=== PATIENT | female | born 1955 | race Caucasian/White ===

== ENCOUNTER → 2016-12-25 | Outpatient (CLI) | payer OTHER | END | disposition home or self-care (01) | LOC: RAD 11:43 | PROVIDERS: ATTEND Nurse Practitioner Family | DX: Z01.818 Encounter for other preprocedural examination (principal); Z96.659 Presence of unspecified artificial knee joint | CPT/HCPCS: 71020 ==

== ENCOUNTER 2017-02-11 05:18 | Inpatient (IN) | payer OTHER ==
[2017-02-03 15:54] VITALS: BP 142/87
[~2017-02-11] VITALS: Ht 162.6 cm; Wt 86.0 kg
[~2017-02-11 05:18] MED LIST: ALPR0.5T6 PO; AMLO1CAP14 PO; ESTR2TAB PO; FLUO20TA25 PO; IBUP-1223 PO; LEVO75TA PO
[2017-02-11] MEDS ORDERED: LACTATED RINGERS 1,000 ML IV SCH (05:44)
[2017-02-11] MEDS ORDERED: ALLEGRA PO (05:48)
[2017-02-11] MEDS ORDERED: VANCOMYCIN PMX 1GM/200ML 200 ML IV STA (05:58)
[2017-02-11] MEDS ORDERED: LIDOCAINE 1%, 2ML SQ PRN (06:00)
[2017-02-11] MEDS ORDERED: cloniDINE/PF 100 MCG/ML, 10 ML ONE (06:11)
[2017-02-11] MEDS ORDERED: TRANEXAMIC ACID 100 MG/ML, 10ML ONE (06:11)
[2017-02-11] MEDS ORDERED: EPINEPHRINE 1 MG/ML, 1ML ONE (06:12)
[2017-02-11] MEDS ORDERED: LIDOCAINE/PF 1%, 30ML ONE (06:12)
[2017-02-11] MEDS ORDERED: KETAMINE 10 MG/ML, 20ML ONE (06:17)
[2017-02-11] MEDS ORDERED: MIDAZOLAM 1 MG/ML, 2ML ONE (06:17)
[2017-02-11] MEDS ORDERED: FENTANYL PF 250 MCG/5ML ONE (06:18)
[2017-02-11] MEDS ORDERED: DEXAMETHASONE 4 MG/ML, 1ML ONE (06:21)
[2017-02-11] MEDS ORDERED: PROPOFOL 10 MG/ML, 20ML ONE (06:21)
[2017-02-11] MEDS ORDERED: BUPIVACAINE/PF 0.25% ONE (06:21)
[2017-02-11] MEDS ORDERED: ONDANSETRON 2MG/ML, 2ML ONE (06:21)
[2017-02-11] MEDS ORDERED: BUPIVACAINE/PF 0.5% ONE (06:21)
[2017-02-11] MEDS ORDERED: CEFAZOLIN 1,000 MG ONE (06:21)
[2017-02-11] MEDS ORDERED: SCOPOLAMINE PATCH, 1.5MG PATCH.TD72 TD ONE ×2 (06:30→06:31)
[2017-02-11] MEDS ORDERED: PROPOFOL 50 ML ONE ×2 (06:54→07:44)
[2017-02-11] MEDS ORDERED: LIDOCAINE GEL 2%, 5ML ONE (06:57)
[2017-02-11] MEDS ORDERED: MAGNESIUM HYDROXIDE 8%, 30ML UDC PO PRN (07:00)
[2017-02-11] MEDS ORDERED: GABAPENTIN 300 MG CAPSULE PO ONE (07:00)
[2017-02-11] MEDS ORDERED: ONDANSETRON 4 MG TABLET PO PRN (07:00)
[2017-02-11] MEDS ORDERED: ZOLPIDEM 5MG TABLET PO PRN (07:00)
[2017-02-11] MEDS ORDERED: PROMETHAZINE 25 MG/ML, 1ML IM PRN (07:00)
[2017-02-11] MEDS ORDERED: morphine SULFATE 10 MG/ML, 1ML IV PRN (07:00)
[2017-02-11] MEDS ORDERED: BISACODYL 10 MG SUPP PR PRN (07:00)
[2017-02-11] MEDS ORDERED: PROMETHAZINE 12.5 MG SUPP PR PRN (07:00)
[2017-02-11] MEDS ORDERED: ACETAMINOPHEN 650 MG/20.3 ML UDC PO PRN (07:00)
[2017-02-11] MEDS ORDERED: OXYcodone IR 5MG TABLET PO SCH (07:00)
[2017-02-11] MEDS ORDERED: ONDANSETRON 2MG/ML, 2ML IV PRN (07:00)
[2017-02-11] MEDS ORDERED: ALUMINUM/MAG/SIMETHICONE 30 ML UDC PO PRN (07:00)
[2017-02-11] MEDS ORDERED: ACETAMINOPHEN 500 MG TABLET PO ONE (07:00)
[2017-02-11] MEDS ORDERED: DIPHENHYDRAMINE 50 MG CAPSULE PO PRN (07:00)
[2017-02-11] MEDS ORDERED: SENNA/DOCUSATE TABLET PO PRN (07:00)
[2017-02-11] MEDS ORDERED: HYDROmorphone 2 MG/ML, 1ML ONE (07:23)
[2017-02-11] MEDS ORDERED: LIDOCAINE-MPF 2% ,5ML ONE (07:31)
[2017-02-11] MEDS ORDERED: KETOROLAC 30 MG/1 ML ONE (07:56)
[2017-02-11] MEDS ORDERED: LORazepam 2 MG/ML, 1ML IVPush PRN (08:00)
[2017-02-11] MEDS ORDERED: MEPERIDINE/PF 25MG/0.5ML IVPush PRN (08:00)
[2017-02-11] MEDS ORDERED: PROMETHAZINE 25 MG/ML, 1ML IV PRN (08:00)
[2017-02-11] MEDS ORDERED: FENTANYL PF 100 MCG/2ML IV PRN (08:00)
[2017-02-11] MEDS ORDERED: ONDANSETRON 2MG/ML, 2ML IVPush PRN (08:00)
[2017-02-11] MEDS ORDERED: ALBUTEROL/IPRATROPIUM 2.5MG/0.5MG, 3 ML NPPB PRN (08:00)
[2017-02-11] MEDS ORDERED: OXYcodone 5 MG/5 ML ORAL.SOL UDC PO PRN (08:00)
[2017-02-11] MEDS ORDERED: DIAZEPAM 5 MG/ML, 2ML IVPush PRN (08:00)
[2017-02-11] MEDS ORDERED: hydrALAzine 20 MG/ML, 1ML IV PRN (08:00)
[2017-02-11] MEDS ORDERED: LABETALOL 5MG/ML, 20ML IV PRN (08:00)
[2017-02-11] MEDS ORDERED: MIDAZOLAM 1 MG/ML, 2ML IV PRN (08:00)
[2017-02-11] MEDS ORDERED: HYDROmorphone 1 MG/ML, 1ML IV PRN (08:00)
[2017-02-11] MEDS ORDERED: OXYcodone 5 MG/5 ML ORAL.SOL UDC ONE (09:32)
[2017-02-11] MEDS ORDERED: HYDROmorphone 1 MG/ML, 1ML ONE (09:48)
[2017-02-11] MEDS ORDERED: LACTATED RINGERS 500 ML IVBOLUS ONE (10:30)
[2017-02-11 11:00] VITALS: BP 94/58
[2017-02-11] MEDS ORDERED: CEFAZOLIN PMX 2GM/50ML 50 ML IVPB SCH (11:00)
[2017-02-11] MEDS: OXYcodone IR 5MG TABLET PO SCH ×3 (13:30→21:30)
[2017-02-11 14:00] VITALS: BP 108/79
[2017-02-11] MEDS: CEFAZOLIN 2,000 MG in DEXTROSE 5% 50 ML IVPB SCH ×2 (16:21→23:54)
[2017-02-11] MEDS: DOCUSATE 100 MG CAPSULE PO SCH ×2 (16:58→20:25)
[2017-02-11] MEDS: FLUOXETINE 20 MG CAPSULE PO SCH (16:58)
[2017-02-11] MEDS: ESTRADIOL 2 MG TABLET PO SCH (16:58)
[2017-02-11 20:14] VITALS: BP 134/71
[2017-02-11] MEDS: D5%-0.45% NACL 1,000 ML IV SCH ×2 (20:37→20:38)
[2017-02-11] MEDS: FLU VACC QS2017-18 (36MOS+) UP/PF 0.5 ML IM-VACC ONE (21:30)
[2017-02-11 23:40] VITALS: BP 117/75
[2017-02-12] MEDS: D5%-0.45% NACL 1,000 ML IV SCH (02:50)
[2017-02-12 03:43] VITALS: BP 126/76
[2017-02-12] MEDS: OXYcodone IR 5MG TABLET PO SCH ×3 (04:20→12:52)
[2017-02-12] MEDS ORDERED: LEVOTHYROXINE 75 MCG TABLET PO SCH (06:00)
[2017-02-12] MEDS: KETOROLAC 30 MG/1 ML IV SCH ×2 (06:21→15:00)
[2017-02-12 07:40] VITALS: BP 125/76
[2017-02-12] MEDS: FLUOXETINE 20 MG CAPSULE PO SCH (08:46)
[2017-02-12] MEDS: ESTRADIOL 2 MG TABLET PO SCH (08:46)
[2017-02-12] MEDS: DOCUSATE 100 MG CAPSULE PO SCH (08:46)
[2017-02-12 14:53] VITALS: BP 130/66
[2017-02-12] MEDS: FLU VACC QS2017-18 (36MOS+) UP/PF 0.5 ML IM-VACC ONE (15:31)
[2017-02-12] MEDS ORDERED: ASPIRIN 325 MG TABLET EC PO SCH (18:00)
== END 2017-02-12 16:00 | disposition home or self-care (01) | DRG 470 ==
LOC: ORIP 05:18 → 4NOR 10:55 → DCLOUNGE 02-12 15:45
PROVIDERS: ADMIT Orthopaedic Surgery; ATTEND Orthopaedic Surgery
PROC: 0SRC069 Replacement of Right Knee Joint with Oxidized Zirconium on Polyethylene Synthetic Substitute, Cemented, Open Approach (ICD-10-PCS; principal; 2017-02-11 07:00)
DX: M17.11 Unilateral primary osteoarthritis, right knee (principal); E03.9 Hypothyroidism, unspecified; I10 Essential (primary) hypertension; Z88.6 Allergy status to analgesic agent; Z88.8 Allergy status to other drugs, medicaments and biological substances; F32.9 Major depressive disorder, single episode, unspecified; F41.1 Generalized anxiety disorder; K21.9 Gastro-esophageal reflux disease without esophagitis
CPT/HCPCS: C1713; J0171; J0690; J1100; J1170; J1885; J2250; J2405; J2704; J3010; J3370; J3490; J7120; C1776; J0735

== ENCOUNTER → 2017-03-04 | Outpatient (CLI) | payer OTHER ==
[~2017-03-04] MED LIST changes: +ALLEGRA PO
== END | disposition home or self-care (01) ==
LOC: CFH 10:07
PROVIDERS: ATTEND Orthopaedic Surgery
DX: R60.0 Localized edema (principal)

== ENCOUNTER → 2017-04-03 | Outpatient (CLI) | payer OTHER ==
[2017-04-03 14:54] LABS: ANION GAP 9 mmol/L (5-15); CALCIUM 9.3 mg/dL (8.5-10.1); CHLORIDE 109 mmol/L (98-107)
[2017-04-03 14:58] LABS: ALANINE AMINOTRANSFERASE 22 U/L (12-78); ALKALINE PHOSPHATASE 84 U/L (45-117); BILIRUBIN,TOTAL 0.4 mg/dL (0.2-1.0); CREATININE 0.84 mg/dL (0.55-1.02)
== END ==
LOC: STAR 13:15
PROVIDERS: ATTEND Orthopaedic Surgery
DX: Z01.818 Encounter for other preprocedural examination (principal); M25.561 Pain in right knee; Z96.651 Presence of right artificial knee joint
CPT/HCPCS: 36415; 80053

== ENCOUNTER 2017-04-08 05:56 | Day surgery (SDC) | payer OTHER ==
[~2017-04-08] VITALS: Ht 162.6 cm; Wt 78.5 kg
[2017-04-08] MEDS ORDERED: LACTATED RINGERS 1,000 ML IV SCH (06:13)
[2017-04-08] MEDS ORDERED: BUPIVACAINE/PF 0.5% ONE ×2 (06:15→06:58)
[2017-04-08 06:16] VITALS: BP 145/73
[2017-04-08] MEDS ORDERED: FENTANYL PF 100 MCG/2ML ONE ×3 (06:16→07:27)
[2017-04-08] MEDS ORDERED: MIDAZOLAM 1 MG/ML, 2ML ONE (06:16)
[2017-04-08] MEDS ORDERED: methylPREDNISolone *ACETATE* 40 MG/ML ONE (06:16)
[2017-04-08] MEDS ORDERED: PROPOFOL 10 MG/ML, 20ML ONE ×2 (06:22→06:48)
[2017-04-08] MEDS ORDERED: methylPREDNISolone*ACETATE* 80 MG/ML ONE ×2 (06:46→06:58)
[2017-04-08] MEDS ORDERED: EPINEPHRINE 1 MG/ML, 1ML ONE (06:46)
[2017-04-08] MEDS ORDERED: DEXAMETHASONE 4 MG/ML, 1ML ONE (06:48)
[2017-04-08] MEDS ORDERED: ONDANSETRON 2MG/ML, 2ML ONE (06:48)
[2017-04-08] MEDS ORDERED: HYDROmorphone 1 MG/ML, 1ML IV PRN (07:00)
[2017-04-08] MEDS ORDERED: ALBUTEROL/IPRATROPIUM 2.5MG/0.5MG, 3 ML NPPB PRN (07:00)
[2017-04-08] MEDS ORDERED: ALLEGRA PO SCH (07:00)
[2017-04-08] MEDS ORDERED: hydrALAzine 20 MG/ML, 1ML IV PRN (07:00)
[2017-04-08] MEDS ORDERED: OXYcodone 5 MG/5 ML ORAL.SOL UDC PO PRN (07:00)
[2017-04-08] MEDS ORDERED: DIAZEPAM 5 MG/ML, 2ML IVPush PRN (07:00)
[2017-04-08] MEDS ORDERED: PROMETHAZINE 25 MG/ML, 1ML IV PRN (07:00)
[2017-04-08] MEDS ORDERED: MIDAZOLAM 1 MG/ML, 2ML IV PRN (07:00)
[2017-04-08] MEDS ORDERED: METOCLOPRAMIDE 5 MG/ML, 2ML IV PRN (07:00)
[2017-04-08] MEDS ORDERED: ONDANSETRON 2MG/ML, 2ML IVPush PRN (07:00)
[2017-04-08] MEDS ORDERED: MEPERIDINE/PF 25MG/0.5ML IVPush PRN (07:00)
[2017-04-08] MEDS ORDERED: LABETALOL 5MG/ML, 20ML IV PRN (07:00)
[2017-04-08] MEDS ORDERED: ACETAMINOPHEN 325 MG TABLET PO PRN (07:00)
[2017-04-08] MEDS ORDERED: ACETAMINOPHEN 650 MG/20.3 ML UDC ONE (07:27)
[2017-04-08] MEDS ORDERED: ACETAMINOPHEN 325 MG TABLET ONE (07:27)
[2017-04-08] MEDS ORDERED: LORazepam 2 MG/ML, 1ML ONE (07:28)
[2017-04-08] MEDS ORDERED: OXYcodone 5 MG/5 ML ORAL.SOL UDC ONE (07:28)
[2017-04-08] MEDS: FENTANYL PF 100 MCG/2ML IV PRN ×3 (07:33→07:51)
[2017-04-08] MEDS: LORazepam 2 MG/ML, 1ML IVPush PRN ×2 (07:34→07:46)
[2017-04-08] MEDS ORDERED: IBUPROFEN 800 MG TABLET PO SCH (09:00)
[2017-04-08] MEDS ORDERED: TEMPLATE NON-FORMULARY MED. (Fluoxetine Hcl** 20 MG) PO SCH (09:00)
[2017-04-08] MEDS ORDERED: ESTRADIOL 2 MG TABLET PO SCH (09:00)
[2017-04-09] MEDS ORDERED: LEVOTHYROXINE 75 MCG TABLET PO SCH (06:00)
== END 2017-04-08 10:10 ==
LOC: OUT 05:56
PROVIDERS: ATTEND Orthopaedic Surgery
DX: M24.661 Ankylosis, right knee (principal); E03.9 Hypothyroidism, unspecified; Z96.651 Presence of right artificial knee joint; Z88.8 Allergy status to other drugs, medicaments and biological substances; Z88.5 Allergy status to narcotic agent
CPT/HCPCS: 20610; 27570; J0171; J1040; J1100; J2060; J2250; J2405; J2704; J3010; J3490; J7120; J1030

== ENCOUNTER 2018-02-10 10:56 | Emergency (ER) | payer OTHER ==
[~2018-02-10] VITALS: Ht 162.6 cm; Wt 79.6 kg
[2018-02-10] MEDS ORDERED: KETOROLAC 30 MG/1 ML IM ONE (11:30)
[2018-02-10] MEDS ORDERED: KETOROLAC 30 MG/1 ML ONE (11:30)
[2018-02-10 13:22] VITALS: BP 124/73
== END 2018-02-10 13:24 | disposition home or self-care (01) ==
LOC: ED 11:28
DX: S62.355A Nondisplaced fracture of shaft of fourth metacarpal bone, left hand, initial encounter for closed fracture (principal); I10 Essential (primary) hypertension; W01.0XXA Fall on same level from slipping, tripping and stumbling without subsequent striking against object, initial encounter; Y93.89 Activity, other specified; Y92.009 Unspecified place in unspecified non-institutional (private) residence as the place of occurrence of the external cause; Y99.8 Other external cause status
CPT/HCPCS: 29125; 73080; 73130; 96372; 99284; J1885

== ENCOUNTER 2018-03-09 10:25 | Day surgery (SDC) | payer OTHER ==
[~2018-03-09] VITALS: Ht 162.6 cm; Wt 79.2 kg
[2018-03-09] MEDS ORDERED: MIDAZOLAM 1 MG/ML, 2ML ONE (10:41)
[2018-03-09] MEDS ORDERED: FENTANYL PF 100 MCG/2ML ONE ×3 (10:41→13:38)
[2018-03-09] MEDS ORDERED: CEFAZOLIN 1,000 MG ONE ×2 (10:42)
[2018-03-09] MEDS ORDERED: BUPIVACAINE/PF 0.5% ONE (10:42)
[2018-03-09] MEDS ORDERED: WATER-INJECTION,STERILE 10 ML IV ONE (10:42)
[2018-03-09] MEDS ORDERED: LACTATED RINGERS 1,000 ML IV SCH (10:43)
[2018-03-09] MEDS ORDERED: LIDOCAINE-MPF 2% ,5ML ONE (10:43)
[2018-03-09] MEDS ORDERED: PROPOFOL 10 MG/ML, 20ML ONE (10:43)
[2018-03-09] MEDS ORDERED: ONDANSETRON 2MG/ML, 2ML ONE ×2 (10:45)
[2018-03-09] MEDS ORDERED: DEXAMETHASONE 4 MG/ML, 1ML ONE ×2 (10:45)
[2018-03-09] MEDS ORDERED: APREPITANT 40 MG CAPSULE ONE (10:55)
[2018-03-09] MEDS ORDERED: PROPOFOL 50 ML ONE (11:01)
[2018-03-09 11:02] VITALS: BP 144/86
[2018-03-09] MEDS ORDERED: KETOROLAC 30 MG/1 ML ONE (11:14)
[2018-03-09] MEDS ORDERED: HALOPERIDOL 5 MG/ML IV PRN (11:30)
[2018-03-09] MEDS ORDERED: PROMETHAZINE 25 MG/ML, 1ML IV PRN (11:30)
[2018-03-09] MEDS ORDERED: LABETALOL 5MG/ML, 20ML IV PRN (11:30)
[2018-03-09] MEDS ORDERED: hydrALAzine 20 MG/ML, 1ML IV PRN (11:30)
[2018-03-09] MEDS ORDERED: MEPERIDINE/PF 25MG/0.5ML IVPush PRN (11:30)
[2018-03-09] MEDS ORDERED: OXYcodone 5 MG/5 ML ORAL.SOL UDC PO PRN (11:30)
[2018-03-09] MEDS ORDERED: ACETAMINOPHEN 325 MG TABLET PO PRN (11:30)
[2018-03-09] MEDS ORDERED: ACETAMINOPHEN 650 MG/20.3 ML UDC ONE (12:21)
[2018-03-09] MEDS ORDERED: OXYcodone 5 MG/5 ML ORAL.SOL UDC ONE (12:21)
[2018-03-09] MEDS: FENTANYL PF 100 MCG/2ML IV PRN ×2 (12:25→12:34)
[2018-03-09] MEDS ORDERED: HYDROmorphone 2 MG/ML, 1ML ONE (12:57)
[2018-03-09] MEDS: HYDROmorphone 2 MG/ML, 1ML IVPush PRN ×4 (13:00→13:47)
== END 2018-03-09 15:30 | disposition home or self-care (01) ==
LOC: OUT 10:25
PROVIDERS: ATTEND Orthopaedic Surgery
DX: S62.325A Displaced fracture of shaft of fourth metacarpal bone, left hand, initial encounter for closed fracture (principal); I10 Essential (primary) hypertension; Z88.5 Allergy status to narcotic agent; Z88.8 Allergy status to other drugs, medicaments and biological substances; Z96.651 Presence of right artificial knee joint; Z79.899 Other long term (current) drug therapy; X58.XXXA Exposure to other specified factors, initial encounter; Y93.89 Activity, other specified; Y92.89 Other specified places as the place of occurrence of the external cause; Y99.8 Other external cause status
CPT/HCPCS: 26615; 73140; 76000; C1713; J0690; J1100; J1170; J1885; J2250; J2405; J2704; J3010; J3490; J7120; J8501

== ENCOUNTER 2020-07-27 21:16 | Emergency (ER) | payer MEDICARE ==
[~2020-07-27] VITALS: Ht 162.6 cm; Wt 81.5 kg
[~2020-07-27 21:16] MED LIST changes: -ALPR0.5T6 PO; +ALPR0.5T93 PO; -AMLO1CAP14 PO; +AMLO1CAP53 PO
--- NOTE | 2020-07-27 21:50 | NUR ---
pt came into ed this evening after being seen earlier today for an abcess on groin. pt reports they prescribed bactrim and she took the first dose and immediately began to have a banerjee, dizziness, chills, fever, vomiting and abdominal discomfort. pt states she came into ed right after. on arrival to ed pt is tachy in the 130s, fever elevated at 102.3. pt changed into gown, placed on spo2/bp/ecg monitoring, ambulated to and from restroom with a steady gait, rn stand by assist. ua and blood cultures obtained and sent to lab. albino layne walked to lab. pt resting on gurney, medicated per may, at , bed in [facility], rails engaged, call light on lap. wctm.
[2020-07-27] MEDS ORDERED: KETOROLAC 30 MG/1 ML ONE (21:54)
[2020-07-27] MEDS ORDERED: ONDANSETRON 2MG/ML, 2ML ONE (21:54)
[2020-07-27] MEDS ORDERED: ACETAMINOPHEN 500 MG TABLET ONE (21:54)
[2020-07-27] MEDS ORDERED: SODIUM CHLORIDE 0.9% 1,000ML IVBOLUS ONE (22:00)
[2020-07-27] MEDS ORDERED: KETOROLAC 30 MG/1 ML IVPush ONE (22:00)
[2020-07-27] MEDS ORDERED: ACETAMINOPHEN 500 MG TABLET PO ONE (22:00)
[2020-07-27] MEDS ORDERED: MORPHINE SULFATE 4 MG/ML, 1ML IVPush PRN (22:00)
[2020-07-27] MEDS ORDERED: ONDANSETRON 2MG/ML, 2ML IVPush ONE (22:00)
[2020-07-27] MEDS ORDERED: SODIUM CHLORIDE FLUSH 10ML SYR IVF ONE (22:00)
[2020-07-27 22:22] LABS: BASOPHILS % (AUTO) 0 % (0-1); EOSINOPHILS % (AUTO) 0 % (1-7); LYMPHOCYTES % (AUTO) 5 % (22-44); MEAN CORPUSCULAR HEMOGLOBIN 31.6 pg (27.0-34.8); MEAN CORPUSCULAR HGB CONC 33.8 g/dL (32.4-35.8); MEAN PLATELET VOLUME 9.4 fL (7.4-10.4); MONOCYTES % (AUTO) 5 % (2-9); NEUTROPHILS % (AUTO) 89 % (42-75); PLATELET COUNT 320 x10^3/uL (130-400); RED BLOOD COUNT 4.38 x10^6/uL (3.82-5.3); RED CELL DISTRIBUTION WIDTH 14.2 % (9.6-15.2)
[2020-07-27 22:28] LABS: ALANINE AMINOTRANSFERASE 28 U/L (12-78); ALBUMIN 4.1 g/dL (3.4-5.0); ANION GAP 9 mmol/L (5-15); CALCIUM 9.7 mg/dL (8.5-10.1); CHLORIDE 105 mmol/L (98-107)
[2020-07-27 22:30] LABS: ALKALINE PHOSPHATASE 101 U/L (45-117); BILIRUBIN,TOTAL 0.8 mg/dL (0.2-1.0); TOTAL PROTEIN 8.4 g/dL (6.4-8.2)
[2020-07-27 22:36] LABS: MICROSCOPIC NOT IND
[2020-07-27 22:56] LABS: MD NO
--- NOTE | 2020-07-27 23:22 | NUR ---
pt resting on courtney ash, states "i feel a lot better". pt looks significantly more comfortable, bed in lowest, rails engaged, call light on lap, at bs, wctm. geri gutierrez at bs for eval and poc.
--- NOTE | 2020-07-27 23:47 | NUR ---
pt to ct at this time via courtney ash, denies additional needs, appears comfortable, no other changes in condition, wctm
[2020-07-28] MEDS ORDERED: OMNIPAQUE 350 MG/ML, 100ML BOTTLE ONE (00:12)
--- NOTE | 2020-07-28 00:28 | NUR ---
pt resting on gurney, nad, appears comfortable, no change in condition, wctm. waiting for ct
[2020-07-28] MEDS ORDERED: LIDOCAINE-MPF 1%, 5ML INFIL ONE (00:30)
[2020-07-28] MEDS ORDERED: LIDOCAINE-MPF 1%, 5ML ONE (00:34)
[2020-07-28] MEDS ORDERED: CLINDAMYCIN PMX 600MG/50ML 50 ML IV ONE (01:00)
[2020-07-28] MEDS ORDERED: CLINDAMYCIN PMX 600MG/50ML 50 ML ONE (01:10)
--- NOTE | 2020-07-28 01:18 | NUR ---
Note bertha in EDM - 07/28/20 at 0130 by MAUDE Patient given discharge instructions and they have confirmed that they understand the instructions. Patient ambulatory with steady gait. nad, denies additional questions or needs, vss, no personal belongings left in room after dc.
[2020-07-28 01:30] VITALS: BP 127/77
--- NOTE | 2020-07-28 01:31 | NUR ---
pt resting on gurney, nad, abx running, provided water for comfort, denies additional needs at this time. bed in lowest, rails engaged, call light on lap, waiting for I&D. wctm.
--- NOTE | 2020-07-28 02:28 | NUR ---
Patient given discharge instructions and they have confirmed that they understand the instructions. Patient ambulatory with steady gait. nad, denies additional questions or needs, vss, no personal belongings left in room after dc. provided wound care supplies and informed to follow up for packing removal in 2 days
== END 2020-07-28 02:29 | disposition home or self-care (01) ==
LOC: ED 07-28 02:10
DX: L02.214 Cutaneous abscess of groin (principal); L03.116 Cellulitis of left lower limb; R50.9 Fever, unspecified; Z20.822 Contact with and (suspected) exposure to COVID-19; R00.0 Tachycardia, unspecified; I10 Essential (primary) hypertension; R94.31 Abnormal electrocardiogram [ECG] [EKG]
CPT/HCPCS: 10060; 36415; 71045; 72193; 80053; 81003; 83605; 84145; 85025; 87040; 87635; 93005; 96361; 96365; 96375; 99285; J1885; J2405; J7030; Q9967